=== PATIENT | female | born 1935 | race Caucasian/White ===

== ENCOUNTER 2017-03-19 20:11 | Inpatient (IN) | payer MEDICARE, OTHER ==
[~2017-03-19] VITALS: Ht 170.2 cm; Wt 75.4 kg
[2017-03-19 21:37] LABS: HEMOGLOBIN 12.4 gm/dl (12.3-15.3); RED BLOOD COUNT 4.26 M/UL (4.00-5.10); WHITE BLOOD COUNT 14.2 K/UL (4.5-11.0)
[2017-03-20] MEDS ORDERED: NEURONTIN400 MG PO (04:39)
[2017-03-20] MEDS ORDERED: NORCO 7.5-3251 EACH PO (04:40)
[2017-03-20] MEDS ORDERED: COZAAR 25MG TAB25 MG PO (04:40)
[2017-03-20] MEDS ORDERED: TRAMADOL HCL50 MG PO (04:41)
[2017-03-20] MEDS ORDERED: TRANDATE 200 M200 MG PO (04:42)
[2017-03-21 07:16] LABS: HEMOGLOBIN 10.8 gm/dl (12.3-15.3); WHITE BLOOD COUNT 10.9 K/UL (4.5-11.0)
[2017-03-21 07:19] LABS: RED BLOOD COUNT 3.78 M/UL (4.00-5.10)
[2017-03-21 08:05] LABS: BUN/CREATININE RATIO 16 (0-10)
[2017-03-22 05:46] LABS: HEMOGLOBIN 10.5 gm/dl (12.3-15.3); RED BLOOD COUNT 3.69 M/UL (4.00-5.10)
[2017-03-23 06:53] LABS: BUN/CREATININE RATIO 14 (0-10)
[2017-03-24 02:05] LABS: HEMOGLOBIN 10.5 gm/dl (12.3-15.3); RED BLOOD COUNT 3.7 M/UL (4.00-5.10); WHITE BLOOD COUNT 6.6 K/UL (4.5-11.0)
[2017-03-24 02:29] LABS: BUN/CREATININE RATIO 15 (0-10)
[2017-03-24 05:32] LABS: HEMOGLOBIN 10.5 gm/dl (12.3-15.3); RED BLOOD COUNT 3.68 M/UL (4.00-5.10); WHITE BLOOD COUNT 6.2 K/UL (4.5-11.0)
[2017-03-24 06:09] LABS: BUN/CREATININE RATIO 14 (0-10)
[2017-03-25 04:26] LABS: HEMOGLOBIN 10.8 gm/dl (12.3-15.3); RED BLOOD COUNT 3.83 M/UL (4.00-5.10); WHITE BLOOD COUNT 7.6 K/UL (4.5-11.0)
[2017-03-25 04:49] LABS: BUN/CREATININE RATIO 10 (0-10)
[2017-03-25] MEDS ORDERED: PLAVIX 75 MG TA75 MG PO (16:18)
[2017-03-25] MEDS ORDERED: LIPITOR TAB 2020 MG PO (16:18)
[2017-03-25] MEDS ORDERED: CEFUROXIME500 MG PO (16:20)
[2017-03-25] MEDS ORDERED: LABETALOL HCL200 MG PO (16:20)
[2017-03-25] MEDS ORDERED: ASPIRIN CHEWABL81 MG PO (16:39)
== END 2017-03-25 17:37 | disposition home or self-care (01) | DRG 853 ==
LOC: ER1 20:11 → ZEROF 23:56 → M/S 23:56
PROVIDERS: Internal Medicine; Student in an Organized Health Care Education/Training Program; ADMIT Internal Medicine
PROC: 047P3ZZ Dilation of Right Anterior Tibial Artery, Percutaneous Approach (ICD-10-PCS; principal; 2017-03-23)
PROC: B41C1ZZ Fluoroscopy of Pelvic Arteries using Low Osmolar Contrast (ICD-10-PCS; principal; 2017-03-23)
PROC: B41F1ZZ Fluoroscopy of Right Lower Extremity Arteries using Low Osmolar Contrast (ICD-10-PCS; principal; 2017-03-23)
PROC: B41G1ZZ Fluoroscopy of Left Lower Extremity Arteries using Low Osmolar Contrast (ICD-10-PCS; principal; 2017-03-23)
DX: A41.9 Sepsis, unspecified organism (principal); J18.9 Pneumonia, unspecified organism; G93.41 Metabolic encephalopathy; N30.00 Acute cystitis without hematuria; I69.351 Hemiplegia and hemiparesis following cerebral infarction affecting right dominant side; J44.0 Chronic obstructive pulmonary disease with (acute) lower respiratory infection; Z87.891 Personal history of nicotine dependence; B96.20 Unspecified Escherichia coli [E. coli] as the cause of diseases classified elsewhere; Z16.11 Resistance to penicillins; I69.328 Other speech and language deficits following cerebral infarction; I10 Essential (primary) hypertension; Z88.2 Allergy status to sulfonamides; R09.02 Hypoxemia; L97.519 Non-pressure chronic ulcer of other part of right foot with unspecified severity; I73.9 Peripheral vascular disease, unspecified; I99.8 Other disorder of circulatory system
CPT/HCPCS: 36245; 36415; 70450; 71010; 71020; 75630; 75635; 80048; 80053; 80061; 80202; 81001; 82550; 82553; 83605; 83735; 83874; 83880; 84100; 84484; 85025; 85027; 85347; 85610; 85730; 86140; 87040; 87077; 87086; 87186; 93005; 93926; 93971; 96361; 96365; 96375; 96376; 99285; C1725; C1769; J0456; J0696; J1200; J1644; J1650; J1956; J2250; J3010; J3370; J7030; J7050; J7070; J7120; Q9963; Q9965